=== PATIENT | female | born 1945 | race Caucasian/White ===

== ENCOUNTER 2017-12-22 11:10 | Day surgery (SDC) | payer MEDICARE, BC ==
[~2017-12-22] VITALS: Ht 170.2 cm; Wt 84.1 kg
--- NOTE | ~2017-12-22 | OP ---
PATIENT NAME: SOCORRO SAMSON MEDICAL RECORD: [id number] :47 LOCATION:D.OPS ADMISSION DATE: SURGEON: NAYAN HERRERA DO DATE OF OPERATION: 12/22/2017 PROCEDURE: Colonoscopy with polypectomy. INDICATIONS FOR PROCEDURE: History of colon polyps and dark stools. SCOPE: KDPOF video pediatric colonoscope. MEDICATIONS: Propofol 400 mg IV per anesthesia. WITHDRAWAL TIME: 13 minutes. ESTIMATED BLOOD LOSS: Minimal. COMPLICATIONS: None. FINDINGS: Informed consent was given. The patient was made comfortable with the above medication. After reaching an adequate level of sedation by slow IV push, the patient was placed on her left side. A digital rectal examination was performed and it was normal. The endoscope was then advanced under direct visualization through the rectum to the cecum with visualization of the appendiceal orifice and ileocecal valve. The endoscope was slowly withdrawn and mucosa was carefully examined. There were 3 polyps visualized on today examination. One was a benign appearing polyp which was sessile and located in the transverse colon. It measured approximately 7-8 mm in diameter. It was removed using hot snare 1 piece and completely retrieved. Two other polyps were located in the sigmoid colon. There were benign-appearing and sessile and ranged in size from 4-6 mm in diameter. They were both removed using hot snare 1 piece and completely retrieved. Retroflexion was performed in the rectum with normal appearing rectal wall. The endoscope was then withdrawn from the patient. The patient tolerated the procedure well and there were no complications. IMPRESSION: 1. Three polyps as described above, removed using hot snare. 2. Otherwise, normal colonoscopy. PLAN AND RECOMMENDATIONS: 1. Discharge home when recovery parameters are met. 2. Continue current diet. 3. Continue current medications. 4. Recall colonoscopy in 3 years pending pathology of polyps removed on today examination. 5. Proceed with upper endoscopy as scheduled. TRANSINT:[id number] Voice Confirmation ID: [id number] DOCUMENT ID: [id number] OPERATIVE REPORT [id number] SOCORRO SAMSON NAYAN HERRERA DO CC: [id number] DICTATION DATE: 12/22/17 1508 BOAT MOTOR MECHANIC: 12/22/17 16[address] [facility] [address] [place] [address]
[2017-12-22 11:41] LABS: BASOPHILS 0.2 % (0-2); EOSINOPHILS 0.6 % (0-7); HEMATOCRIT 38.7 % (36.0-48.0); HEMOGLOBIN 11.7 g/dL (12-16); IMMATURE GRANULOCYTES 0.1 % (0-5); MCHC 30.2 g/dL (31.0-37.0); MCV 79.3 fL (80.0-100.0); MEAN PLATELET VOLUME 9.7 fL (7.4-10.4); NEUTROPHILS 50.1 % (40-80); PLATELET COUNT 367 10x3/uL (130-400); RBC 4.88 10x6/uL (4.00-5.40); RDW 16.6 % (11.5-14.5); WBC 8.8 10x3/uL (4.8-10.8)
[2017-12-22 12:02] LABS: ANION GAP 14.1 mmol/L (8-16); CALCIUM 9.5 mg/dL (8.5-10.1); CARBON DIOXIDE 33.4 mmol/L (21.0-32.0); CREATININE - SERUM 0.9 mg/dL (0.6-1.3)
[2017-12-22 12:03] LABS: INR 0.98 (0.85-1.17); PROTIME 12.6 SECONDS (11.6-15.0)
[2017-12-22 12:06] LABS: POTASSIUM - SERUM 2.5 mmol/L (3.5-5.1)
[2017-12-22] MEDS ORDERED: OMEPRAZOLE20 M1 PO (12:08)
[2017-12-22] MEDS ORDERED: LEVOTHYROXINE100 MCG PO (12:08)
[2017-12-22] MEDS ORDERED: XARELTO20 MG PO (12:09)
[2017-12-22] MEDS ORDERED: HYDROCODON-ACE1 EAC7 PO (12:09)
[2017-12-22] MEDS ORDERED: POTASSIUM20 MEQ/11 PO (12:10)
[2017-12-22] MEDS ORDERED: NITROSTAT0.4 MG SL (12:10)
[2017-12-22 12:12] VITALS: BP 136/86; Ht 170.2 cm; Wt 84.1 kg
== END 2017-12-22 16:05 | disposition home or self-care (01) ==
LOC: D.OPS 11:10
PROVIDERS: Anesthesiology
DX: K63.5 Polyp of colon (principal); Z01.812 Encounter for preprocedural laboratory examination

== ENCOUNTER 2017-12-29 11:29 | Day surgery (SDC) | payer MEDICARE, BC ==
[~2017-12-29] VITALS: Ht 170.2 cm; Wt 84.1 kg
--- NOTE | ~2017-12-29 | OP ---
PATIENT NAME: SOCORRO SAMSON MEDICAL RECORD: [id number] :47 LOCATION:D.OPS ADMISSION DATE: SURGEON: NAYAN HERRERA DO DATE OF OPERATION: 12/29/2017 PROCEDURE: EGD with biopsies and balloon dilation less than 30 mm. SCOPE: Olympus video gastroscope. MEDICATIONS: Propofol 180 mg IV per anesthesia. ESTIMATED BLOOD LOSS: Minimal. COMPLICATIONS: None. INDICATIONS FOR PROCEDURE: Dysphagia, heartburn, dark stools, epigastric abdominal tenderness. FINDINGS: Informed consent was given. The patient was made comfortable with the above medication. After reaching an adequate level of sedation by slow IV push, the patient was placed on her left side. The endoscope was advanced under direct visualization through the mouth to the second portion of the duodenum. The upper, middle, and lower thirds of the esophagus appeared normal. At the GE junction, there was a ring consistent with Schatzki ring just proximal to a large hiatal hernia. 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 Some cold forceps biopsies were taken right at the GE junction to confirm or rule this out. The endoscope was advanced beyond the GE junction into the stomach and retroflexed view of the cardia where the large hiatal hernia could be visualized better. The fundus, body of the stomach, antrum, and prepyloric appeared normal. Random biopsies were taken with cold forceps to submit for histology and to rule out H. pylori. The endoscope was advanced beyond the pylorus into the duodenum where the exam and portions of the duodenum down to the second portion appeared normal. The endoscope was then withdrawn back into the stomach and an 18-20 mm dilating balloon was placed through the endoscope. The endoscope was withdrawn back into the esophagus and the Schatzki ring was dilated up to 20 mm successfully. The balloon was then withdrawn from the scope and the scope was withdrawn from the patient. The patient tolerated the procedure well and there were no complications. IMPRESSION: 1. Schatzki ring just proximal to a large hiatal hernia. 2. Large hiatal hernia. PLAN AND RECOMMENDATIONS: 1. Discharge home when recovery parameters are met. 2. Continue current medications. 3. Continue GERD diet and reflux precautions. 4. Repeat EGD as needed for dysphagia or if Appiah's is confirmed, repeat in 2 years for surveillance. TRANSINT:[id number] Voice Confirmation ID: [id number] DOCUMENT ID: [id number] OPERATIVE REPORT [id number] SOCORRO SAMSON NATHAN A DO at 0842 CC: [id number] DICTATION DATE: 12/29/17 1430 SPECIAL EDUCATION TEACHING ASSISTANT: 12/29/[address] [facility] 12/29/17 [place] [id number] [place] [id number]
[~2017-12-29 11:29] MED LIST: HYDROCODON-ACE1 EAC7 PO; LEVOTHYROXINE100 MCG PO; NITROSTAT0.4 MG SL; OMEPRAZOLE20 M1 PO; POTASSIUM20 MEQ/11 PO; XARELTO20 MG PO
[2017-12-29 12:42] LABS: BASOPHILS 0.5 % (0-2); EOSINOPHILS 2.2 % (0-7); HEMOGLOBIN 10.8 g/dL (12-16); IMMATURE GRANULOCYTES 0.3 % (0-5); LYMPHOCYTES 34.5 % (15-50); MEAN PLATELET VOLUME 10.1 fL (7.4-10.4); MONOCYTES 9.3 % (2-11); NEUTROPHILS 53.2 % (40-80); PLATELET COUNT 395 10x3/uL (130-400); RDW 16.8 % (11.5-14.5); WBC 7.7 10x3/uL (4.8-10.8)
[2017-12-29 12:50] VITALS: BP 145/85; Ht 170.2 cm; Wt 84.1 kg
[2017-12-29 12:54] LABS: CALC OSMOLALITY 279 mosm/kg (275-300); CALCIUM 9.1 mg/dL (8.5-10.1); CARBON DIOXIDE 31.9 mmol/L (21.0-32.0); CHLORIDE - SERUM 96 mmol/L (98-107); CREATININE - SERUM 0.8 mg/dL (0.6-1.3); GLUCOSE 146 mg/dL (74-106); SODIUM 138 mmol/L (136-145); UREA NITROGEN 16 mg/dL (7-18); eGFR NON AFRICAN AMERICAN 75 mL/min (90-120)
== END 2017-12-29 15:40 | disposition home or self-care (01) ==
LOC: D.OPS 11:29
PROVIDERS: Anesthesiology
DX: R13.10 Dysphagia, unspecified (principal); R10.13 Epigastric pain; K22.2 Esophageal obstruction; K21.9 Gastro-esophageal reflux disease without esophagitis; E66.9 Obesity, unspecified; Z68.29 Body mass index [BMI] 29.0-29.9, adult; Z01.812 Encounter for preprocedural laboratory examination